=== PATIENT | male | born 1960 | race African-American/Black ===

== ENCOUNTER 2020-09-24 16:32 | Emergency (ER) | payer OTHER ==
[2020-09-24 16:43] VITALS: BP 160/105; PULSE 67; TEMP 97.9; BMI 28.1
[2020-09-24] MEDS ORDERED: IBUPROFEN 600 MG TABLET (FP) PO ONE (17:19)
[2020-09-24] MEDS ORDERED: IBUPROFEN 400 MG TABLET (FP) PO ONE (17:34)
== END 2020-09-24 18:27 | disposition home or self-care (01) ==
LOC: JERFT 16:32
DX: S13.4XXA Sprain of ligaments of cervical spine, initial encounter (principal); V49.40XA Driver injured in collision with unspecified motor vehicles in traffic accident, initial encounter
CPT/HCPCS: 99283-25